=== PATIENT | male | born 1950 ===

== ENCOUNTER 2020-07-04 09:45 | Outpatient (REF) | payer MEDICARE, SELFPAY ==
[2020-07-04 10:26] LABS: Hematocrit 41.9 % (42-52); Hemoglobin 13.9 g/dl (14.0-18.0); Mean Corpuscular HGB Conc 33.2 g/dl (31.0-36.0); Mean Corpuscular Hemoglobin 28.1 pg (27.0-33.0); Mean Corpuscular Volume 84.6 fL (80-98); Mean Platelet Volume 10.6 fL (9.4-12.4); Platelet Count 190 X10*3/uL (160-400); Red Blood Count 4.95 X10*6/uL (4.60-5.80); Red Cell Distribution Width 13.1 % (11.0-16.0); White Blood Count 5.2 X10*3/uL (4.8-10.8)
[2020-07-04 11:54] LABS: Alanine Aminotransferase 12 U/L (0-40); Albumin Level 4.3 g/dL (3.5-5.0); Alkaline Phosphatase 123 U/L (39-117); Anion Gap 9 (12-20); Aspartate Amino Transferase 14 U/L (5-37); Bilirubin Total 1.3 mg/dL (0.0-1.0); Blood Urea Nitrogen 16 mg/dL (9-16); Carbon Dioxide 30 mmol/L (22-29); Chloride 103 mmol/L (96-108); Cholesterol 179 mg/dL; Estimated Glomerular Filt Rate > 60; Glucose Fasting 150 mg/dL (60-99); HDL Cholesterol 48 mg/dL; LDL Cholesterol Calculated 115 mg/dl; Potassium 4.3 mmol/L (3.3-5.1); Prostate Specific Antigen Scr 25.08 ng/mL (<0.05-4.0); Sodium 138 mmol/L (135-145); TSH reflex Free T4 1.16 uIU/mL (0.32-4.0); Total Protein 7.4 g/dL (6.5-8.0); Triglycerides 80 mg/dL
== END 2020-07-04 09:46 | disposition home or self-care (01) ==
LOC: HO.LAB 09:45
PROVIDERS: PCP Physician Assistant; Visit Provider Physician Assistant
DX: E11.65 Type 2 diabetes mellitus with hyperglycemia (principal); I10 Essential (primary) hypertension; R97.20 Elevated prostate specific antigen [PSA]; Z12.5 Encounter for screening for malignant neoplasm of prostate
CPT/HCPCS: 36415; 80053; 80061; 84153; 84443; 85027

== ENCOUNTER → 2020-08-14 09:37 | Outpatient (BNVA) | payer MEDICARE, SELFPAY | PROVIDERS: PCP Physician Assistant; Visit Provider Urology | DX: R97.20 Elevated prostate specific antigen [PSA] (principal) | CPT/HCPCS: 99202 ==

== ENCOUNTER → 2020-08-20 07:52 | Outpatient (BNVA) | payer MEDICARE, SELFPAY | PROVIDERS: PCP Physician Assistant; Visit Provider Physician Assistant | DX: Z12.11 Encounter for screening for malignant neoplasm of colon (principal) | CPT/HCPCS: 99202 ==

== ENCOUNTER → 2020-08-28 10:42 | Outpatient (BNVA) | payer MEDICARE, SELFPAY | PROVIDERS: PCP Physician Assistant; Visit Provider Nurse Practitioner Gerontology | DX: E11.65 Type 2 diabetes mellitus with hyperglycemia (principal); E78.5 Hyperlipidemia, unspecified; B35.3 Tinea pedis | CPT/HCPCS: 82947; 99212 ==

== ENCOUNTER → 2020-10-15 10:21 | Outpatient (BNVA) | payer MEDICARE, SELFPAY | PROVIDERS: PCP Physician Assistant; Visit Provider Nurse Practitioner Gerontology | DX: E11.65 Type 2 diabetes mellitus with hyperglycemia (principal); E78.5 Hyperlipidemia, unspecified | CPT/HCPCS: 82947; 99212 ==

== ENCOUNTER 2021-01-11 07:19 | Outpatient (REF) | payer MEDICARE, SELFPAY ==
[2021-01-11 08:32] LABS: Hematocrit 41.7 % (42-52); Hemoglobin 13.7 g/dl (14.0-18.0); Mean Corpuscular HGB Conc 32.9 g/dl (31.0-36.0); Mean Corpuscular Hemoglobin 28.9 pg (27.0-33.0); Mean Platelet Volume 10.3 fL (9.4-12.4); Platelet Count 176 X10*3/uL (160-400); Red Blood Count 4.74 X10*6/uL (4.60-5.80); Red Cell Distribution Width 13.1 % (11.0-16.0); White Blood Count 5.5 X10*3/uL (4.8-10.8)
[2021-01-11 09:04] LABS: Alanine Aminotransferase 23 U/L (0-40); Albumin Level 4.2 g/dL (3.5-5.0); Alkaline Phosphatase 107 U/L (39-117); Anion Gap 12 (12-20); Aspartate Amino Transferase 22 U/L (5-37); Bilirubin Total 1.1 mg/dL (0.0-1.0); Blood Urea Nitrogen 15 mg/dL (9-16); Carbon Dioxide 27 mmol/L (22-29); Chloride 105 mmol/L (96-108); Cholesterol 129 mg/dL; Estimated Glomerular Filt Rate > 60; Glucose Fasting 139 mg/dL (60-99); HDL Cholesterol 59 mg/dL; LDL Cholesterol Calculated 61 mg/dl; Potassium 4.1 mmol/L (3.3-5.1); Sodium 140 mmol/L (135-145); Total Protein 7.1 g/dL (6.5-8.0); Triglycerides 49 mg/dL
[2021-01-11 09:17] LABS: TSH reflex Free T4 2.62 uIU/mL (0.32-4.0)
[2021-01-11 09:20] LABS: Creatinine Urine 169.25 mg/dL; Microalbum/Creatinine Ratio Ur 9.4 ug/mg cr
[2021-01-13 19:36] LABS: C Peptide 1.41 ng/mL (0.80-3.85)
[2021-01-15 19:06] LABS: Glutamic acid decarboxylase Ab <5 IU/mL (<5)
[2021-01-21 00:52] LABS: Islet Cell Antibody Screen NEGATIVE (NEGATIVE)
== END 2021-01-11 07:20 | disposition home or self-care (01) ==
LOC: HO.LAB 07:19
PROVIDERS: Absent Provider Physician Assistant; PCP Physician Assistant; Visit Provider Nurse Practitioner Gerontology
DX: E78.5 Hyperlipidemia, unspecified (principal); E11.65 Type 2 diabetes mellitus with hyperglycemia; I10 Essential (primary) hypertension
CPT/HCPCS: 36415; 80053; 80061; 82043; 84443; 84681; 85027; 86255; 86341

== ENCOUNTER → 2021-01-15 07:53 | Outpatient (BNVA) | payer MEDICARE, SELFPAY | PROVIDERS: PCP Physician Assistant; Visit Provider Nurse Practitioner Gerontology | DX: E11.65 Type 2 diabetes mellitus with hyperglycemia (principal); E78.5 Hyperlipidemia, unspecified | CPT/HCPCS: 82947; 99212 ==

== ENCOUNTER → 2021-07-16 07:56 | Outpatient (BNVA) | payer MEDICARE, SELFPAY | PROVIDERS: PCP Physician Assistant; Visit Provider Nurse Practitioner Gerontology | DX: E11.42 Type 2 diabetes mellitus with diabetic polyneuropathy (principal); E78.5 Hyperlipidemia, unspecified; Z79.84 Long term (current) use of oral hypoglycemic drugs | CPT/HCPCS: 82947; 83036; 99212 ==

== ENCOUNTER → 2021-10-01 08:57 | Outpatient (BNVA) | payer MEDICARE, SELFPAY | PROVIDERS: PCP Physician Assistant; Referring Provider Physician Assistant; Visit Provider Physician Assistant | DX: R19.5 Other fecal abnormalities (principal) | CPT/HCPCS: 99212; Q3014 ==

== ENCOUNTER 2021-10-18 09:59 | Outpatient (REF) | payer MEDICARE, SELFPAY ==
[2021-10-18 10:32] LABS: Hematocrit 39.3 % (42.0-52.0); Hemoglobin 13.6 g/dl (14.0-18.0); Mean Corpuscular HGB Conc 34.6 g/dl (31.0-36.0); Mean Corpuscular Volume 83.8 fL (80.0-98.0); Mean Platelet Volume 9.8 fL (9.4-12.4); Platelet Count 144 X10*3/uL (160-400); Red Blood Count 4.69 X10*6/uL (4.60-5.80); Red Cell Distribution Width 13.3 % (11.0-16.0); White Blood Count 5.1 X10*3/uL (4.8-10.8)
[2021-10-18 10:42] LABS: Estimated Average Glucose 146 mg/dL; Hemoglobin A1c % 6.7 %
[2021-10-18 11:02] LABS: Alanine Aminotransferase 15 U/L (0-40); Albumin Level 4.2 g/dL (3.5-5.0); Alkaline Phosphatase 130 U/L (39-117); Anion Gap 12 (12-20); Aspartate Amino Transferase 15 U/L (5-37); Bilirubin Total 1.4 mg/dL (0.0-1.0); Blood Urea Nitrogen 14 mg/dL (9-16); Calcium 9.2 mg/dL (8.4-10.2); Carbon Dioxide 27 mmol/L (22-29); Chloride 105 mmol/L (96-108); Cholesterol 116 mg/dL; Estimated Glomerular Filt Rate > 60; Glucose Fasting 132 mg/dL (60-99); HDL Cholesterol 49 mg/dL; LDL Cholesterol Calculated 54 mg/dl; Magnesium 1.9 mg/dL (1.6-2.6); Potassium 4.1 mmol/L (3.3-5.1); Sodium 140 mmol/L (135-145); Total Protein 7.3 g/dL (6.5-8.0); Triglycerides 69 mg/dL
[2021-10-18 11:57] LABS: Creatinine Urine 186.12 mg/dL; Microalbum/Creatinine Ratio Ur 10.7 ug/mg cr
[2021-10-18 12:01] LABS: Prostate Specific Antigen Scr 24.37 ng/mL (<0.05-4.0)
== END 2021-10-18 10:00 | disposition home or self-care (01) ==
LOC: HO.LAB 09:59
PROVIDERS: PCP Physician Assistant; Visit Provider Physician Assistant
DX: Z12.5 Encounter for screening for malignant neoplasm of prostate (principal); E78.5 Hyperlipidemia, unspecified; R20.2 Paresthesia of skin; R97.20 Elevated prostate specific antigen [PSA]; E11.42 Type 2 diabetes mellitus with diabetic polyneuropathy; E11.65 Type 2 diabetes mellitus with hyperglycemia
CPT/HCPCS: 36415; 80053; 80061; 82043; 83036; 83735; 84153; 85027

== ENCOUNTER → 2021-10-22 13:42 | Outpatient (BNVA) | payer MEDICARE, SELFPAY | PROVIDERS: PCP Physician Assistant; Visit Provider Urology | DX: R97.20 Elevated prostate specific antigen [PSA] (principal); N40.1 Benign prostatic hyperplasia with lower urinary tract symptoms; N13.8 Other obstructive and reflux uropathy | CPT/HCPCS: 99212 ==

== ENCOUNTER 2022-02-20 07:51 | Day surgery (SDC) | payer MEDICARE, SELFPAY ==
[2022-02-20 08:01] VITALS: BMI 25.8
[2022-02-20 08:18] VITALS: BP 156/81; PULSE 87; RESP 16; TEMP 36.7; O2SAT 99
--- NOTE | 2022-02-20 08:31 | P.CONAN_ITS ---
FORM[facility]LY [facility] Active Problems Active Problems: All Active Problems (Updated 02/04/22 @ 08:36 by Jeffrey Wan PA-C) Colonoscopy refused (Acute) Trigger finger of right hand (Acute) Right hand paresthesia (Acute) Type 2 diabetes mellitus with diabetic polyneuropathy (Acute) Positive colorectal cancer screening using Cologuard test (Acute) Prostate cancer screening (Acute) Medicare annual wellness visit, initial (Acute) Hyperlipidemia LDL goal <100 (Acute) DMII (diabetes mellitus, type 2) (Acute) Tinea pedis of both feet (Acute) Elevated PSA (Acute) Colon cancer screening (Acute) Past Medical History Medical History Abnormal chest x-ray with multiple lung nodules COVID-19 Cyst of left kidney Diabetes mellitus, type II Elevated hemoglobin A1c Hyperlipidemia LDL goal <100 Hypoxia Tinea pedis of both feet Type 2 diabetes mellitus with diabetic polyneuropathy Family History Family History Father Diabetes Mother Hypertension Family history of problems with anesthesia: No Surgical History Surgical History No history of previous surgery History of Problems with Anesthesia: No Social History Social History Household Members: Family Housing: House Alcohol intake: never Patient Tobacco Use Status: Never used Tobacco e-Cigarette/Vaping Use: Never Used Second Hand Smoke Exposure: No Use of substances other than those prescribed or required for medical reasons: No Are you DNR?: No Advance Directives: No Advance Directives Information Provided: Yes service: No Current occupational status: retired Cognitive needs: No Hearing needs: No Vision needs: Yes Meds Allergies Allergy/AdvReac Type Severity Reaction Status Date / Time No Known Allergies Allergy Verified 02/20/22 08:04 [No Known Allergies*] Exam Exam Date and Time: February 20, 2022 0831 Height,Weight and Vital Signs: Height 5 ft 6 in Weight 72.575 kg Last Vital Signs Temp 98.0 F 02/20/22 08:18 Pulse 87 02/20/22 08:18 Resp 16 02/20/22 08:18 BP 156/81 H 02/20/22 08:18 Pulse Ox 99 02/20/22 08:18 O2 Del Method 02/20/22 08:18 Airway Mallampati Class: II (Missing multiple teeth, denies any loose) TM Dist: >3cm Neck ROM: Full Heart: rrr Lungs: cta Assessment and Plan Assessment Anesthesia Assessment: Anesthesia Plan Discussed and Chart Reviewed Final Anesthetic Review Family History of Problems with Anesthesia: No History of Problems with Anesthesia: No NPO: Yes ASA Class: II Final Preanesthetic Review: No Changes in Pt Med Stat, Meds/Allgs Chart Reviewed and Consent Obtained/Reviewed Patient Risk: Intermediate Procedure Risk: Intermediate Anesthetic Plan Anesthetic Plan: MAC: Disposition: Standard PACU
[2022-02-20 08:38] LABS: Glucose, Whole Blood 106 mg/dL (60-115)
--- NOTE | 2022-02-20 09:57 | MHC.SHP ---
Pre-Procedural Eval Section A Date of Service: 02/20/22 The patient is an INPATIENT: No Section B Chief Complaint: fecal abnormalities,screening,Procedure and treatm Details of Present Illness: colon cancer screening, positive Cologuard test Relevant Family History (Specify if Yes): No Relevant Social History: None Present Medications: see Short Stay Collaborative assessment Medical History: Significant History (Abnormal chest x-ray with multiple lung nodules COVID-19 Cyst of left kidney Diabetes mellitus, type II Elevated hemoglobin A1c Hypoxia) History of Previous Operations: No relevant previous surgery Allergies: Allergies Allergy/AdvReac Type Severity Reaction Status Date / Time No Known Allergies Allergy Verified 02/20/22 08:04 [No Known Allergies*] Review of Systems Sugical H&P ROS: Negative: Constitution, Cardiovascular, Respiratory and Gastrointestinal Exam Surgical H&P Exam: Normal: Heart, Normal: Lungs, Normal: Extremities and Normal: Abdomen Plan Diagnosis/Plan: Unchanged I have reviewed the history and physical and performed a pertinent physical examination on my patient. No changes have occurred unless specified.
--- NOTE | 2022-02-20 09:58 | PM.OP ---
Brief Operative Note Date of Service: 02/20/22 Pre-op diagnosis: colon cancer screening, positive Cologuard test Post-op diagnosis: other ( colon polyps, diverticulosis, hemorrhoids) Procedure: COLONOSCOPY TO CECUM WITH BIOPSIES AND SNARE POLYPECTOMY Surgeon: Thao Snyder MD Anesthesia: MAC Was an Reconciliation Analyst used for this Procedure?: Yes Reconciliation Analyst: Jericho Gagnon Estimated blood loss (mL): 0 Pathology: other (A- TRANVERSE COLON POLYPS B- BECAL POLYP C- ASCENDING COLON POLYPS D- SIGMOID COLON POLYPS) Condition: stable Disposition: PACU
--- NOTE | 2022-02-20 09:59 | P.OP_ITS ---
Operative Note Operative Note Date of Service: 02/20/22 Narrative: Pre-op diagnosis: colon cancer screening, positive Cologuard test Post-op diagnosis:?other ( colon polyps, diverticulosis, hemorrhoids) Surgeon: Thao Snyder MD Anesthesia:?MAC COLONOSCOPY TILL CECUM WITH BIOPSIES AND SNARE POLYPECTOMY Consent: Indications for the procedure and potential complications of bleeding, perforation, reaction to medications and missed diagnosis were discussed with the patient and informed consent was obtained. Instrument: Olympus PCF H 190 L variable stiffness pediatric colonoscope Monitoring: Vital signs and clinical assessment, intermittent blood pressure monitoring, continuous EKG monitoring, Pulse oximetry and Carbon Dioxide monitoring were done throughout the procedure. Colon withdrawl time was 32 minutes. Procedure: The patient was placed in the left lateral decubitis position and pre-procedure medications were administered. After a digital rectal examination of the ano-rectum, the video colonoscope was inserted into the rectum and advanced through the colon to the cecum. The colonoscope was slowly withdrawn in a retrograde panoramic fashion and the colon mucosa was carefully examined including a retroflexed view of the rectum. Findings and interventions are described below. Procedure Difficulty: Without difficulty Findings: Terminal Ileum: Not evaluated Cecum: A 12-15 mm sessile polyp removed with a hot snare. Ascending Colon: A 10 -12 mm sessile polyp in the distal AC removed with a hot snare A 5 mm sessile polyp removed with a cold bx Transverse Colon: A 5-6 mm sessile polyp removed with a cold bx. A 12-15 mm sessile polyp removed with a hot snare. Descending Colon: Normal Sigmoid Colon: Two 8 to 10 mm sessile polyps removed with a hot snare. Moderate diverticulosis Rectum: Normal Ano-rectum: Moderate internal hemorrhoids Colon preparation: Good after copious irrigation and Fair in the right colon and rectum due to undigested vegetable matter. Impression and Post Procedure Diagnosis: Colonoscopy Findings: Seven small to medium sized polyps removed Moderate diverticulosis seen in the sigmoid colon Moderate hemorrhoids on retroflexed exam. Prep was good after copious irrigation and Fair in the right colon and rectum due to undigested vegetable matter. (pt admitted to eating lunch at noon yesterday) Plan: Await pathology results Patient has an appointment on 03/06/22 in the GI Clinic with CEE Gonzalez. Repeat Colonoscopy interval based on path results - in 2 years if polyps are adenomatous and due to fair prep. Above findings were reviewed with the patient and colon polyps and dive rticulosis handouts were given in the discharge area
[2022-02-20 10:55] VITALS: BP 95/66; PULSE 84; RESP 16; TEMP 36.1; O2SAT 96
[2022-02-20 11:10] VITALS: BP 105/66; PULSE 82; RESP 17; O2SAT 99
[2022-02-20 11:25] VITALS: BP 121/64; PULSE 73; RESP 17; TEMP 36.6; O2SAT 99
== END 2022-02-20 12:02 | disposition home or self-care (01) ==
PROVIDERS: PCP Physician Assistant; Visit Provider Internal Medicine Gastroenterology
PROC: 0DJD8ZZ Inspection of Lower Intestinal Tract, Via Natural or Artificial Opening Endoscopic (ICD-10-PCS; CPT 45378; principal; 2022-02-20 09:20)
DX: Z12.11 Encounter for screening for malignant neoplasm of colon (principal); D12.0 Benign neoplasm of cecum; D12.2 Benign neoplasm of ascending colon; D12.3 Benign neoplasm of transverse colon; D12.5 Benign neoplasm of sigmoid colon; K57.30 Diverticulosis of large intestine without perforation or abscess without bleeding; K64.8 Other hemorrhoids; N28.1 Cyst of kidney, acquired; R91.8 Other nonspecific abnormal finding of lung field; E11.9 Type 2 diabetes mellitus without complications; Z79.84 Long term (current) use of oral hypoglycemic drugs; Z79.899 Other long term (current) drug therapy; Z86.16 Personal history of COVID-19
CPT/HCPCS: 45385; 45380; 82947; 88305

== ENCOUNTER → 2022-03-05 08:56 | Outpatient (BNVA) | payer MEDICARE, SELFPAY | PROVIDERS: PCP Physician Assistant; Referring Provider Physician Assistant; Visit Provider Physician Assistant | DX: D36.9 Benign neoplasm, unspecified site (principal); K64.9 Unspecified hemorrhoids; K57.30 Diverticulosis of large intestine without perforation or abscess without bleeding | CPT/HCPCS: 99212 ==

== ENCOUNTER 2023-02-16 08:36 | Outpatient (AMB) | payer MEDICARE, SELFPAY ==
--- NOTE | 2023-02-16 08:42 | A.OFFVIS_ITS ---
Intake Vital Signs 02/16/23 08:46 Height 5 ft 6 in Weight 168 lb 6 oz BMI 27.2 BP 130/70 Blood Pressure Location Rt brachial Position Sitting Pulse 90 Pulse Source Pulse Oximeter Pulse Oximetry (%) 98 Oxygen Delivery Method Room Air Intake Visit Reasons: MELISSA [id number] Intake Note: Patient is here for an Annual Wellness Visit. Item Processing Clerk Required: No Item Processing Clerk Name: [id number] Information Interpreted: non-clinical & clinical Central Aisle Cashier: Central Aisle Cashier offered & declined Accompanied by: Self / Same As Patient Allergies No Known Allergies [No Known Allergies*] Allergy (Verified 02/16/23 09:06) Medication List - Last Reconciled 02/16/23 by GARRISON Connors atorvastatin 20 mg PO DAILY 90 days blood sugar diagnostic (FreeStyle Test strips) test bs twice a day lancets (FreeStyle Lancets) test bs twice a day metformin 500 mg PO QPM 90 days methylcellulose (laxative) (Citrucel) 500 mg PO TID HPI HPI Comments History of Present Illness Details 72-year-old male history of type 2 diabe yoandy, hyperlipidemia, elevated PSA. Patient Tony Wan presents today for subsequent annual well visit. Colonoscopy: Positive Cologuard 11/11/2020; colonoscopy completed 02/20/22 showed tubular adenoma recommended follow-up in 2 years. Recommended yearly diabetic eye exam Recommend flu and pneumonia shot, patient Declined Patient currently following with urology for elevated PSA. Patient recommended Fasting labs completed, patient reports leaving for [place] in March for 5 months. Recommended to get labs completed prior to leaving. Patient reported he does not think he will get them done prior to leaving. [place] of care was reviewed with patient patient was provided with a written s creening schedule. Patient refused healthcare proxy and MOLST forms. [facility] Medical History Abnormal chest x-ray with multiple lung nodules COVID-19 Cyst of left kidney Diabetes mellitus, type II Elevated hemoglobin A1c Hyperlipidemia LDL goal <100 Hypoxia Tinea pedis of both feet Type 2 diabetes mellitus with diabetic polyneuropathy Surgical History Hx of colonoscopy No history of previous surgery Family History Father Diabetes Mother Hypertension Social History Household Members: Family Housing: House Alcohol intake: never Patient Tobacco Use Status: Never used Tobacco e-Cigarette/Vaping Use: Never Used Second Hand Smoke Exposure: No service: No Current occupational status: retired Cognitive needs: No Hearing needs: No Vision needs: Yes Questionnaire Medicare Wellness Checkup [age] What gender do you identify with?: male During the past 4 weeks, how much have you been bothered by emotional problems such as feeling anxious, depressed, irritable, sad or downhearted, and blue?: not at all During the past 4 weeks, has your physical & emotional health limited your social activities with family, friends, neighbors, or groups?: not at all During the past 4 weeks, how much bodily pain have you generally had?: no pain During the past 4 weeks, was someone available to help you if you needed & wanted help?: yes, as much as I wanted During the past 4 weeks, what was the hardest physical activity you could do for at least 2 minutes?: moderate Can you get to places out of walking distance without help? (For eg., can you travel alone on buses, taxis or drive your car?): Yes Can you go shopping for groceries or clothes without someone's help?: Yes Can you prepare your own meals?: Yes Can you do your housework without help?: Yes Because of any health problems, do you need the help of another person with your personal care needs such as eating, bathing, dressing or getting around the house?: No Can you handle your own money without help?: Yes During the past 4 weeks, how would you rate your health in general?: good During the past 4 weeks how have things been going for you?: pretty well Are you having difficulties driving your car?: no Do you always fasten your seat belt when you are in a car?: yes, usually During past 4 weeks, have you been bothered by the following: never: Falling or dizzy when standing up, Sexual problems?, Trouble eating well?, Teeth or denture problems?, Problems using the telephone? and Tiredness or fatigue? Have you fallen 2 or more times in the past year?: No Are you afraid of falling?: No Are you a smoker?: no During the past 4 weeks, how many drinks of wine, beer, or other alcoholic beverages did you have?: no alcohol at all Do you exercise for about 20 minutes 3 or more times a week?: yes, all the time Have you been given information to help with the following?: yes: Hazards in your house that might hurt you? and yes: Keeping track of your medications? How often do you have trouble taking medicines the way you have been told to take them?: I always take medicine as prescribed How confident are you that you can control & manage most of your health problems?: very confident What is your race?: or origin or descent Activity of Daily Living Bathing - sponge bath, tub bath or shower: receives no assistance (gets in/out by self, if usual bathing means Dressing - getting clothes from closets & drawers, including inner/outer garments & fasteners.: gets clothes & gets completely dressed without help Toileting - going to the 'toilet room' for urine/bowel elimination & cleaning self/arranging clothes: goes to toilet room, cleans self, arranges clothes without help Transfer: moves in & out of bed and chair without help (may use support object) Continence: controls urination/bowel movements completely by self Feeding: feeds self without help Total Score: 0 Information obtained from: patient Using telephone: independent Traveling: dependent Shopping: needs assistance (brother) Preparing meals: needs assistance (brother cooks) Housework: needs assistance Taking medicine: independent Managing money: independent PHQ-9 Over the last 2 weeks, how often have you been bothered by any of the following problems? 1. Little interest or pleasure in doing things: not at all 2. Feeling down, depressed, or hopeless: not at all 3. Trouble falling or staying asleep, or sleeping too much: not at all 4. Feeling tired or having little energy: not at all 5. Poor appetite or overeating: not at all 6. Feeling bad about yourself - or that you are a failure or have let yourself or your family down: not at all 7. Trouble concentrating on things, such as reading the newspaper or watching television: not at all 8. Moving or speaking so slowly that other people could have noticed. Or the opposite - being so fidgety or restless that you have been moving around a lot more than usual: not at all 9. Thoughts that you would be better off or of hurting yourself in some way: not at all Total score: 0 Depression Screening Interpretation: Negative Depression Screening Done: Yes 46005 - PHQ-9 Billing: Yes Source: Developed by Drs. Sy Donald, Ronan Saez and colleagues, with an educational judah from [employer]. Thrive Questionnaire Date Thrive assessed: 08/11/22 SRINIVASAN-7 AMB Questionnaire SRINIVASAN-7 Date SRINIVASAN - 7 assessed: 08/11/22 Source: Developed by Drs. Sy Donald, Ronan Saez and colleagues, with an educational judah from [employer]. Physical Exam Vital Signs: Last Vital Signs Pulse 90 02/16/23 08:46 BP 130/70 02/16/23 08:46 Pulse Ox 98 02/16/23 08:46 Oxygen Delivery Method Room Air 02/16/23 08:46 BMI result Body Mass Index 27.2 Const General: cooperative and no acute distress Orientation/consciousness: patient oriented x3 HEENT Ears: other (whisper test: pass) Neuro General: patient oriented x3 Gait exam (Neuro): Normal gait present Coordination: tandem gait normal and Romberg test negative Results AMB Hemoglobin A1c AMB Hemoglobin A1c 6.2 % Last Edit by ESVIN Meyers on 02/16/23 09:04 Results Reviewed Results Reviewed: Laboratory Last Values Hgb A1c (Clinic) 6.2 % (4.0-6.0) H 02/16/23 08:56 Assessment & Plan Assessment & Plan (1) Elevated PSA: Code(s): R97.20 - Elevated prostate specific antigen [PSA] Plan: Patient advised to continue to follow with Dr. Asif. Repeat PSA level ordered. (2) Type 2 diabetes mellitus with diabetic polyneuropathy: Code(s): E11.42 - Type 2 diabetes mellitus with diabetic polyneuropathy Qualifiers: Diabetes mellitus shelter insulin use: without shelter use Qualified Code(s): E11.42 - Type 2 diabetes mellitus with diabetic polyneuropathy Plan: Hemoglobin A1c 6.2% Continue on metformin. Follow low-carbohydrate diet. (3) Hyperlipidemia LDL goal <100: Code(s): E78.5 - Hyperlipidemia, unspecified Plan: Fasting lipid panel ordered LDL goal less than 100. Follow low-cholesterol diet, continue on atorvastatin. Refill sent to patient's pharmacy. (4) Medicare annual wellness visit, subsequent: Code(s): Z00.00 - Encounter for general adult medical examination without abnormal f indings Plan: Follow-up in 1 year. Orders: Orders PSA,Total (Free>4and<10) Today R97.20 - Elevated prostate specific antigen [PSA] AMB Hemoglobin A1c Today E11.42 - Type 2 diabetes mellitus with diabetic polyn europathy, E11.9 - Type 2 diabetes mellitus without complications Comprehensive [place]. Panel Fast Today E11.42 - Type 2 diabetes mellitus with diabetic polyneuropathy Complete Blood Count no Diff Today Z13.0 - Encounter for screening for diseases of the blood and blood-forming organs and certain disorders involving the immune mechanism TSH reflex Free T4 Today Z13.29 - Encounter for screening for other suspected endocrine disorder Lipid Panel Today Z13.220 - Encounter for screening for lipoid disorders Medications: Refilled atorvastatin 20 mg PO DAILY 90 tabs 2RF 90 days E78.5 - Hyperlipidemia, unspecified Quality Reporting (2019) Depression/Bipolar (159/160/161/177) PHQ-9: Total score: 0 Coding Level of Care Code Medicare Subsequent (G0439) Diagnoses Elevated PSA R97.20 Type 2 diabetes mellitus with diabetic polyneuropathy, without long-term current use of insulin E11.42 Diabetes mellitus shelter insulin use: without shelter use Hyperlipidemia LDL goal <100 E78.5 Medicare annual wellness visit, subsequent Z00.00 Advance Care Planning Advance Care Planning discussion: Declined forms Date of discussion: 02/16/23 Forms completed: Health Care Proxy and MOLST Actual minutes spent: 1 Did not discuss due to Cultural/Spiritual beliefs: No
[2023-02-16 08:46] VITALS: BP 130/70; PULSE 90; O2SAT 98; BMI 27.2
== END 2023-02-16 09:22 | disposition home or self-care (01) ==
PROVIDERS: Visit Provider Nurse Practitioner Family
DX: R97.20 Elevated prostate specific antigen [PSA] (principal); E11.42 Type 2 diabetes mellitus with diabetic polyneuropathy; E78.5 Hyperlipidemia, unspecified; Z00.00 Encounter for general adult medical examination without abnormal findings
CPT/HCPCS: 83036; G0439

== ENCOUNTER 2024-02-24 10:00 | Outpatient (AMB) | payer MEDICARE, SELFPAY ==
[2024-02-24 10:16] VITALS: BP 140/82; PULSE 97; O2SAT 97; BMI 27.6
--- NOTE | 2024-02-24 10:16 | A.OFFVIS_ITS ---
Intake Vital Signs 02/24/24 10:16 Height 5 ft 6 in Weight 171 lb BMI 27.6 BP 140/82 H Blood Pressure Location Lt brachial Position Sitting Pulse 97 Pulse Source Pulse Oximeter Pulse Oximetry (%) 97 Oxygen Delivery Method Room Air Intake Visit Reasons: [facility] Director Of Food And Nutrition Services Required: No Accompanied by: Family/Other Allergies No Known Allergies [No Known Allergies*] Allergy (Verified 02/24/24 10:26) Medication List - Last Reconciled 02/24/24 by Jeffrey Wan PA-C atorvastatin 20 mg PO DAILY 90 days blood sugar diagnostic (FreeStyle Test strips) test bs twice a day lancets (FreeStyle Lancets) test bs twice a day metformin 500 mg PO QPM 90 days methylcellulose (laxative) (Citrucel) 500 mg PO TID HPI [facility] HPI Details Patient is a 73-year-old male here today for an annual wellness visit. Patient has a past medical history significant for type 2 diabetes, multiple colon polyps, hyperlipidemia and elevated PSA. Today we discussed his [place] of care. We also discussed his comprehensive care plan that was scanned into patient's documents. Elevated PSA: Declines Urology evaluation. Denies any urinary symptoms. Will continue follow PSA. Tubular adenoma colon--> colonoscopy done February 2022, multiple colon polyps found. Patient now willing to do any more colonoscopies Vaccines: Up-to-date with flu vaccine, COVID vaccine, considering pneumonia vaccine, declines pneumonia vaccine today HPI Comments History of Present Illness Details reviewed past medical history- yes reviewed surgical / hospitalization history- yes reviewed current medications- yes reviewed family history- yes home safety throw rugs? grab bars? raised toilet seat? working smoke detectors? activities of daily living difficulty bathing or showering? difficulty dressing? difficulty using the toilet? difficulty getting in and out of bed? difficulty walking? receives help from other person's with any of the above tasks? instrumental activities of daily living uses telephone - gets to place out of walking distance- go shopping for groceries- repairs own meals- does own minor home maintenance- does own laundry- does own housework- manages own money- currently takes medication- end of life planning discussed advanced directives- yes advanced directives on file? discussed wishes expressed in advanced directives. fall risk have you had any falls with injuries in the past year? have you had 2 or more falls in the past year? fall risk assessment: [facility] Medical History Abnormal chest x-ray with multiple lung nodules COVID-19 Cyst of left kidney Diabetes mellitus, type II Elevated hemoglobin A1c Hyperlipidemia LDL goal <100 Hypoxia Tinea pedis of both feet Type 2 diabetes mellitus with diabetic polyneuropathy Surgical History Hx of colonoscopy No history of previous surgery Family History Father Diabetes Mother Hypertension Social History Household Members: Family Housing: House Alcohol intake: never Patient Tobacco Use Status: Never used Tobacco e-Cigarette/Vaping Use: Never Used Second Hand Smoke Exposure: No service: No Current occupational status: retired Cognitive needs: No Hearing needs: No Vision needs: Yes Questionnaire Medicare Wellness Checkup [age] What gender do you identify with?: male During the past 4 weeks, how much have you been bothered by emotional problems such as feeling anxious, depressed, irritable, sad or downhearted, and blue?: not at all During the past 4 weeks, has your physical & emotional health limited your social activities with family, friends, neighbors, or groups?: not at all During the past 4 weeks, how much bodily pain have you generally had?: no pain During the past 4 weeks, was someone available to help you if you needed & wanted help?: no, not at all During the past 4 weeks, what was the hardest physical activity you could do for at least 2 minutes?: heavy Can you get to places out of walking distance without help? (For eg., can you travel alone on buses, taxis or drive your car?): Yes Can you go shopping for groceries or clothes without someone's help?: Yes Can you prepare your own meals?: Yes Can you do your housework without help?: Yes Because of any health problems, do you need the help of another person with your personal care needs such as eating, bathing, dressing or getting around the house?: No Can you handle your own money without help?: Yes During the past 4 weeks, how would you rate your health in general?: good During the past 4 weeks how have things been going for you?: pretty well Are you having difficulties driving your car?: not applicable, I don't use a car Do you always fasten your seat belt when you are in a car?: yes, usually During past 4 weeks, have you been bothered by the following: never: Falling or dizzy when standing up, Sexual problems?, Trouble eating well?, Teeth or denture problems?, Problems using the telephone? and Tiredness or fatigue? Have you fallen 2 or more times in the past year?: No Are you afraid of falling?: No Are you a smoker?: no During the past 4 weeks, how many drinks of wine, beer, or other alcoholic beverages did you have?: no alcohol at all Do you exercise for about 20 minutes 3 or more times a week?: yes, all the time Have you been given information to help with the following?: no: Hazards in your house that might hurt you? and no: Keeping track of your medications? How often do you have trouble taking medicines the way you have been told to take them?: I always take medicine as prescribed How confident are you that you can control & manage most of your health problems?: very confident What is your race?: or origin or descent Mini Mental State Exam (MMSE) Orientation What is the (year) (season) (date) (day) (month)?: year Where are we (state) (county) (town or city) (hospital) (floor)?: town or city Score Score: 2 Activity of Daily Living Bathing - sponge bath, tub bath or shower: receives no assistance (gets in/out by self, if usual bathing means Dressing - getting clothes from closets & drawers, including inner/outer g arments & fasteners.: gets clothes & gets completely dressed without help Toileting - going to the 'toilet room' for urine/bowel elimination & cleaning self/arranging clothes: goes to toilet room, cleans self, arranges clothes without help Transfer: moves in & out of bed and chair without help (may use support object) Continence: controls urination/bowel movements completely by self Feeding: feeds self without help Total Score: 0 Information obtained from: patient Using telephone: independent Traveling: independent Shopping: independent Preparing meals: independent Housework: independent Taking medicine: independent Managing money: independent PHQ-9 Over the last 2 weeks, how often have you been bothered by any of the following problems? 1. Little interest or pleasure in doing things: not at all 2. Feeling down, depressed, or hopeless: not at all 3. Trouble falling or staying asleep, or sleeping too much: not at all 4. Feeling tired or having little energy: not at all 5. Poor appetite or overeating: not at all 6. Feeling bad about yourself - or that you are a failure or have let yourself or your family down: not at all 7. Trouble concentrating on things, such as reading the newspaper or watching television: not at all 8. Moving or speaking so slowly that other people could have noticed. Or the opposite - being so fidgety or restless that you have been moving around a lot more than usual: not at all 9. Thoughts that you would be better off or of hurting yourself in some way: not at all Total score: 0 Depression Screening Interpretation: Negative Depression Screening Done: Yes 01147 - PHQ-9 Billing: Yes Source: Developed by Drs. Sy Donald, Klaudia Jung, Ronan Man and colleagues, with an educational judah from [employer]. Physical Exam Vital Signs: Last Vital Signs Pulse 97 02/24/24 10:16 BP 140/82 H 02/24/24 10:16 Pulse Ox 97 02/24/24 10:16 Oxygen Delivery Method Room Air 02/24/24 10:16 BMI result Body Mass Index 27.6 HEENT Other: hearing screening whisper test- pass Eyes Other: vision screening- 20 20 OS OD OU Other: urinary incontinence? no Neuro Other: balance Romberg- normal tandem walk test-able walk-in turned test- able rise from sit to stand-within do seconds Office Procedures Flu Questionnaire Does the patient have a severe egg allergy?: No Does the patient have severe life threatening allergies?: No Does the patient have a fever or illness today?: No Has the patient ever had Guillain-[place] Syndrome?: No Has the patient ever had any past reaction to a flu shot?: No Immunizations Fluarix Triv [id number] (PF) 45 mcg (15 mcg x 3)/0.5 mL IM syringe Performing Provider: Jeffrey Wan PA-C Performing Location: [facility] Administered by: ARYA Burch on 02/24/24 10:25 Dose Route Admin Location Dispensed Lot Number Expiration Date NDC Expansion Joint Builder 0.5 mL IM Left Deltoid 0.5 mL [id number] 10/16/24 [id number] [email or web address] VIS Given Date VIS Provided VIS Publication Date 02/24/24 Single Vaccine 20 Eligibility Eligibility Date Funding Source Not [facility] Eligible 02/24/24 Private Assessment & Plan Assessment & Plan (1) Medicare annual wellness visit, subsequent: Code(s): Z00.00 - Encounter for general adult medical examination without abnormal findings Plan: As per HPI Orders: Orders Lipid Panel Today E78.5 - Hyperlipidemia, unspecified Comprehensive [place]. Panel Fast Today E11.42 - Type 2 diabetes mellitus with diabetic polyneuropathy Complete Blood Count no Diff Today E11.42 - Type 2 diabetes mellitus with diabetic polyneuropathy AMB Hemoglobin A1c Today E11.42 - Type 2 diabetes mellitus with diabetic polyneuropathy Prostate Specific Antigen Scr Today R97.20 - Elevated prostate specific antigen [PSA], Z12.5 - Encounter for screening for malignant neoplasm of prostate Microalbumin, Random (w Creat) Today E11.42 - Type 2 diabetes mellitus with diabetic polyneuropathy Influenza [id number] Immunization Today Z23 - Encounter for immunization Medications: Refilled atorvastatin 20 mg PO DAILY 90 days 90 tabs 2RF E78.5 - Hyperlipidemia, unspecified Quality Reporting (2019) Depression/Bipolar (159/160/161/177) PHQ-9: Total score: 0 Coding Level of Care Code Medicare Subsequent (G0439) Diagnoses Medicare annual wellness visit, subsequent Z00.00 CPT Codes Advance Care Planning - Time spent: 1-15 minutes, not on file ([id number]) Additional Codes PHQ-9 - 64912 - PHQ-9 Billing: Yes ([id number]) Advance Care Planning Advance Care Planning discussion: Exists, not on file Date of discussion: 02/24/24 Forms completed: [facility]OLST Time spent: 1-15 minutes, not on file Actual minutes spent: 3
== END 2024-02-24 11:48 | disposition home or self-care (01) ==
LOC: HO.HMCH 10:00
PROVIDERS: PCP Physician Assistant; Visit Provider Physician Assistant
DX: Z00.00 Encounter for general adult medical examination without abnormal findings (principal)

== ENCOUNTER → 2024-02-24 10:00 | Outpatient (BNVA) | payer MEDICARE, SELFPAY | PROVIDERS: PCP Physician Assistant; Visit Provider Physician Assistant | DX: Z00.00 Encounter for general adult medical examination without abnormal findings (principal); Z23 Encounter for immunization; E11.9 Type 2 diabetes mellitus without complications; E78.5 Hyperlipidemia, unspecified | CPT/HCPCS: 90471; 90656; 96127 ==

== ENCOUNTER 2024-08-24 09:46 | Outpatient (AMB) | payer MEDICARE, SELFPAY ==
--- NOTE | 2024-08-24 10:01 | A.OFFPC_ITS ---
Vital Signs 08/24/24 10:02 Height 5 ft 6 in Weight 169 lb 8 oz BMI 27.4 BP 120/62 Blood Pressure Location Lt brachial Position Sitting Pulse 82 Pulse Source Pulse Oximeter Temp 97.3 F Temp Source Temporal Artery Scan Pulse Oximetry (%) 95 Oxygen Delivery Method Room Air Intake Visit Reasons: f/u DMII/ HLD Allergies No Known Allergies [No Known Allergies*] Allergy (Verified 08/24/24 10:07) Medication List - Last Reconciled 08/24/24 by Jeffrey Wan PA-C atorvastatin 20 mg PO DAILY 90 days blood sugar diagnostic (FreeStyle Test strips) test bs twice a day lancets (FreeStyle Lancets) test bs twice a day metformin 500 mg PO QPM 90 days methylcellulose (laxative) (Citrucel) 500 mg PO TID Tobacco use date assessed: 08/11/22 HPI f/u DMII/ HLD HPI Details Patient is a 74 year-old male here today for a follow-up visit..? .. DMII:? Patient reports blood sugars have been stable home, checking twice per day.? Family reports his diet has been good . He does report on rare occasions having blood sugar at 200. Today's A1c is 6.3 Continues on metformin a 500 qd. he does check his blood sugars twice a day reports normal readings. .. . Elevated PSA:? Patient does have a history of elevated PSA and urology recommending biopsy though patient is declining having biopsy done.? Continue to follow PSA Otherwise patient denies any weak urinary flow or nocturia. Tubular adenoma colon--> colonoscopy done February 2022, multiple colon polyps found. Patient now willing to do any more colonoscopies [facility] Medical History Type 2 diabetes mellitus with diabetic polyneuropathy Hyperlipidemia LDL goal <100 Tinea pedis of both feet Cyst of left kidney Diabetes mellitus, type II Elevated hemoglobin A1c Abnormal chest x-ray with multiple lung nodules Hypoxia COVID-19 Surgical History Hx of colonoscopy No history of previous surgery Family History Father Diabetes Mother Hypertension Social History Household Members: Family Housing: House Alcohol intake: never Patient Tobacco Use Status: Never used Tobacco e-Cigarette/Vaping Use: Never Used Second Hand Smoke Exposure: No service: No Current occupational status: retired Cognitive needs: No Hearing needs: No Vision needs: Yes Questionnaire PHQ-9 Over the last 2 weeks, how often have you been bothered by any of the following problems? 1. Little interest or pleasure in doing things: not at all 2. Feeling down, depressed, or hopeless: not at all 3. Trouble falling or staying asleep, or sleeping too much: not at all 4. Feeling tired or having little energy: not at all 5. Poor appetite or overeating: not at all 6. Feeling bad about yourself - or that you are a failure or have let yourself or your family down: not at all 7. Trouble concentrating on things, such as reading the newspaper or watching television: not at all 8. Moving or speaking so slowly that other people could have noticed. Or the opposite - being so fidgety or restless that you have been moving around a lot more than usual: not at all 9. Thoughts that you would be better off or of hurting yourself in some way: not at all Total score: 0 Depression Screening Interpretation: Negative Depression Screening Done: Yes 39330 - PHQ-9 Billing: Yes Source: Developed by Drs. Sy Donald, Klaudia Jung, Ronan Man and colleagues, with an educational judah from [employer]. Thrive Questionnaire Date Thrive assessed: 08/11/22 I am a: Patient What is your living situation today?: I have a steady place to live Within the past 12 months, did the food you bought not last and you didn't have the money to get more?: I choose not to answer this question Within the past 12 months, did you worry whether your food would run out before you got money to buy more?: I choose not to answer this question Do you have trouble paying for medicines?: I choose not to answer this question Do you have trouble getting transportation to medical appointments?: No Do you have trouble paying your heating and electricity bill?: No Do you have trouble taking care of your child, family member or friend?: No Do you have trouble with day-to-day activities such as bathing, preparing meals, shopping, managing finances, etc.?: No Are you currently unemployed and looking for a job?: I choose not to answer this question Are you interested in more education?: I choose not to answer this question Please select the resources that you would like help with: None Currently or been in a relationship where the following occur: I choose not to answer THRIVE Score: 0 AUDIT C Alcohol Use Questionnaire (AUDIT-C) 1. How often do you have a drink containing alcohol?: Never Total Score: 0 SRINIVASAN-7 AMB Questionnaire SRINIVASAN-7 Date SRINIVASAN - 7 assessed: 08/11/22 Feeling nervous, anxious, or on edge: 0 = Not at all Not being able to stop or control worryin = Not at all Worrying too much about different things: 0 = Not at all Trouble relaxin = Not at all Being so restless that it is hard to sit still: 0 = Not at all Becoming easily annoyed or irritable: 0 = Not at all Feeling afraid as if something awful might happen: 0 = Not at all Total SRINIVASAN-7 score (0-4 normal; 5-9 mild; 10-14 moderate; 15-21 severe): 0 Source: Developed by Drs. Sy Donald, Klaudia Jung, Ronan Man and colleagues, with an educational judah from [employer]. SRINIVASAN-7 Assessment Billing SRINIVASAN-7 Assessment Tool: SRINIVASAN-7 Assessment 38549 Review of Systems Const Denies headache(s) Eyes Denies loss of vision ENT Denies vertigo, Denies dizziness, Denies headache(s) and Denies sore throat Card Denies chest pain, Denies leg edema and Denies lightheadedness Resp Denies cough, Denies hemoptysis and Denies wheezing GI Denies abdominal pain, Denies melena, Denies constipation, Denies diarrhea and Denies vomiting Denies dysuria, Denies urinary frequency and Denies urinary urgency Musc Denies arthralgias, Denies joint swelling, Denies numbness and Denies tingling Neuro Denies Abnormal speech present, Denies behavioral changes, Denies vertigo, Denies dizziness, Denies headache(s), Denies loss of vision, Denies memory loss, Denies numbness and Denies tingling Psych Denies anxiety, Denies behavioral changes, Denies depression, Denies memory loss and Denies panic attacks Ramesh/Lymph Denies easy bleeding and Denies easy bruising Aller/Immun Denies wheezing Physical exam (Primary Care) Vital Signs: Last Vital Signs Temp 97.3 F 08/24/24 10:02 Pulse 82 08/24/24 10:02 BP 120/62 08/24/24 10:02 Pulse Ox 95 08/24/24 10:02 Oxygen Delivery Method Room Air 08/24/24 10:02 BMI result Body Mass Index 27.4 Tobacco/Smoking Status: Tobacco use Status Tobacco use date assessed 08/11/22 08/24/24 10:02 Patient Tobacco Use Status Never used Tobacco 08/24/24 10:02 e-Cigarette/Vaping Use Never Used 08/24/24 10:02 PHQ-9: PHQ-9 Score PHQ-9: Total score 0 08/24/24 10:02 Depression Screening Interpretation: Negative Thrive Assessment: Date of Thrive Assessment Date Thrive assessed 08/11/22 08/24/24 10:02 Currently or been in a relationship where the following occur: I choose not to answer Const General: healthy appearing, no acute distress, alert and awake Nutritional Appearance: well nourished Orientation/consciousness: oriented to person, oriented to place and oriented to time HENMT Ears: TM's normal bilaterally General nose exam: Normal nasal mucous membranes and turbinates present Eyes Conjunctivae: conjunctivae normal Sclerae: sclerae normal Pupils: Equal, round and reactive pupils present Neck Neck: Yes no lymphadenopathy and Yes no JVD Thyroid: Thyroid normal Carotids: no bruits Resp Effort & Inspection: normal respiratory effort and not tachypneic Auscultation: no crackles, no rales, no rhonchi and no wheezes Cardio Rate: regular rate Rhythm: regular rhythm Heart sounds: no murmurs and normal S1 and S2 GI Palpation (GI): Soft to palpation, nontender, no hepatomegaly and no splenomegaly Auscultation: normal bowel sounds Skin General skin exam: no rashes or lesions noted and dry skin Neuro General: oriented to person, oriented to place and oriented to time Cranial nerves: Yes Equal, round and reactive pupils present Speech: No Abnormal speech present Gait exam (Neuro): Normal gait present Motor exam (neuro): no tremor noted Extrem Right upper extremity: full ROM Left upper extremity: full ROM Right lower extremity: full ROM; no edema Left lower extremity: full ROM; no edema Psych Mental Status: mental status grossly normal Speech and movement: Normal speech and movement present Affect: normal affect Attitude: cooperative Thought process: Normal thought process present Results AMB Hemoglobin A1c AMB Hemoglobin A1c 6.3 % Last Edit by ARYA Burch on 08/24/24 10:03 Results Reviewed Results Reviewed: Laboratory Last Values Hgb A1c (Clinic) 6.3 % (4.0-6.0) H 08/24/24 10:02 Coding Level of Care Code Est Pt Level 4 (83907) Diagnoses Type 2 diabetes mellitus with diabetic polyneuropathy, without long-term current use of insulin E11.42 Diabetes mellitus watermaster insulin use: without snf use Diabetes mellitus complication status: with neurologic complications Diabetes mellitus complication detail: with polyneuropathy Hyperlipidemia LDL goal <100 E78.5 Elevated PSA R97.20 Additional Codes PHQ-9 - 47476 - PHQ-9 Billing: Yes ([id number]) SRINIVASAN-7 Assessment Billing - SRINIVASAN-7 Assessment Tool: SRINIVASAN-7 Assessment [id number] ([id number]) Assessment & Plan Assessment & Plan (1) DMII (diabetes mellitus, type 2): Code(s): E11.9 - Type 2 diabetes mellitus without complications Category: Medical Qualifiers: Diabetes mellitus watermaster insulin use: without snf use Diabetes mellitus complication status: with neurologic complications Diabetes mellitus complication detail: with polyneuropathy Qualified Code(s): E11.42 - Type 2 diabetes mellitus with diabetic polyneuropathy Plan: Patient's type 2 diabetes well controlled with current dose of metformin 500 daily. Will continue current antihyperglycemic medication with goal A1c to be below 7.0 (2) Hyperlipidemia LDL goal <100: Code(s): E78.5 - Hyperlipidemia, unspecified Category: Medical Plan: Patient willing to do fasting labs to evaluate total cholesterol and LDL. Goal LDL to be below 100. (3) Elevated PSA: Code(s): R97.20 - Elevated prostate specific antigen [PSA] Category: Medical Plan: Patient continues to have elevated PSA. He denies any urinary symptoms or or nocturia. He is now willing to see urologist for evaluation on possible prostate cancer. Will continue to follow PSA. Patient Instructions: Goal: A1c to remain below 7.0, LDL to be below 100 :Barriers: Adherence to physical activity and healthy eating habits
[2024-08-24 10:02] VITALS: BP 120/62; PULSE 82; TEMP 36.3; O2SAT 95; BMI 27.4
== END 2024-08-24 10:23 | disposition home or self-care (01) ==
LOC: HO.HMCH 09:47
PROVIDERS: PCP Physician Assistant; Visit Provider Physician Assistant
DX: E11.42 Type 2 diabetes mellitus with diabetic polyneuropathy (principal); E78.5 Hyperlipidemia, unspecified; R97.20 Elevated prostate specific antigen [PSA]

== ENCOUNTER 2024-08-24 09:46 | Outpatient (REF) | payer MEDICARE, SELFPAY ==
[2024-08-24 11:55] LABS: Hematocrit 40.2 % (42.0-52.0); Hemoglobin 13.8 g/dl (14.0-18.0); Mean Corpuscular HGB Conc 34.3 g/dl (31.0-36.0); Mean Corpuscular Hemoglobin 29.2 pg (27.0-33.0); Mean Corpuscular Volume 85.2 fL (80.0-98.0); Mean Platelet Volume 10.4 fL (9.4-12.4); Platelet Count 171 X10*3/uL (160-400); Red Blood Count 4.72 X10*6/uL (4.60-5.80); Red Cell Distribution Width 13.6 % (11.0-16.0); White Blood Count 5.8 X10*3/uL (4.8-10.8)
[2024-08-24 12:32] LABS: Alanine Aminotransferase 22 U/L (0-40); Albumin Level 4.1 g/dL (3.5-5.0); Alkaline Phosphatase 123 U/L (39-117); Anion Gap 14 (12-20); Aspartate Amino Transferase 35 U/L (5-37); Bilirubin Total 0.7 mg/dL (0.0-1.0); Blood Urea Nitrogen 15 mg/dL (9-16); Calcium 9.3 mg/dL (8.4-10.2); Carbon Dioxide 18 mmol/L (22-29); Chloride 110 mmol/L (96-108); Cholesterol 181 mg/dL (<200); Estimated Glomerular Filt Rate > 60; Glucose Fasting 102 mg/dL (60-99); HDL Cholesterol 56 mg/dL (>40); LDL Cholesterol Calculated 110 mg/dL (<100); Potassium 4.5 mmol/L (3.3-5.1); Sodium 137 mmol/L (135-145); Total Protein 7.8 g/dL (6.5-8.0); Triglycerides 77 mg/dL (<150)
[2024-08-24 12:50] LABS: Prostate Specific Antigen Scr 99.48 ng/mL (<0.05-4.0)
[2024-08-24 12:59] LABS: Creatinine Urine 147.52 mg/dL; Microalbum/Creatinine Ratio Ur 16.2 ug/mg cr (<30)
== END 2024-08-24 09:47 | disposition home or self-care (01) ==
LOC: HO.LAB 09:46
PROVIDERS: PCP Physician Assistant; Visit Provider Physician Assistant
DX: E11.42 Type 2 diabetes mellitus with diabetic polyneuropathy (principal); E78.5 Hyperlipidemia, unspecified; R97.20 Elevated prostate specific antigen [PSA]; Z12.5 Encounter for screening for malignant neoplasm of prostate; Z79.84 Long term (current) use of oral hypoglycemic drugs
CPT/HCPCS: 36415; 80053; 80061; 82043; 82570; 83036; 84153; 85027; 96127; 99212

== ENCOUNTER 2025-03-01 08:45 | Outpatient (AMB) | payer MEDICARE, SELFPAY ==
--- NOTE | 2025-03-01 09:21 | A.OFFPC_ITS ---
Intake Visit Reasons: awv Allergies No Known Allergies (No Known Allergies*) Allergy (Verified 08/24/24 10:07) Tobacco use date assessed: 08/11/22 [facility] Medical History Type 2 diabetes mellitus with diabetic polyneuropathy Hyperlipidemia LDL goal <100 Tinea pedis of both feet Cyst of left kidney Diabetes mellitus, type II Elevated hemoglobin A1c Abnormal chest x-ray with multiple lung nodules Hypoxia COVID-19 Surgical History Hx of colonoscopy No history of previous surgery Family History Father Diabetes Mother Hypertension Social History Household Members: Family Housing: House Alcohol intake: never Patient Tobacco Use Status: Never used Tobacco e-Cigarette/Vaping Use: Never Used Second Hand Smoke Exposure: No service: No Current occupational status: retired Cognitive needs: No Hearing needs: No Vision needs: Yes Questionnaire Thrive Questionnaire Date Thrive assessed: 08/24/24 I am a: Patient What is your living situation today?: I have a steady place to live Within the past 12 months, did the food you bought not last and you didn't have the money to get more?: I choose not to answer this question Within the past 12 months, did you worry whether your food would run out before you got money to buy more?: I choose not to answer this question Do you have trouble paying for medicines?: I choose not to answer this question Do you have trouble getting transportation to medical appointments?: No Do you have trouble paying your heating and electricity bill?: No Do you have trouble taking care of your child, family member or friend?: No Do you have trouble with day-to-day activities such as bathing, preparing meals, shopping, managing finances, etc.?: No Are you currently unemployed and looking for a job?: I choose not to answer this question Are you interested in more education?: I choose not to answer this question Please select the resources that you would like help with: None Currently or been in a relationship where the following occur: I choose not to answer THRIVE Score: 0 SRINIVASAN-7 AMB Questionnaire SRINIVASAN-7 Date SRINIVASAN - 7 assessed: 08/11/22 Source: Developed by Drs. Sy Donald, Klaudia Jung, Ronan Man and colleagues, with an educational judah from [employer]. Physical exam (Primary Care) Tobacco/Smoking Status: Tobacco use Status Tobacco use date assessed 08/11/22 08/24/24 10:02 Patient Tobacco Use Status Never used Tobacco 08/24/24 10:02 e-Cigarette/Vaping Use Never Used 08/24/24 10:02 Thrive Assessment: Date of Thrive Assessment Date Thrive assessed 08/24/24 03/01/25 08:46 Currently or been in a relationship where the following occur: I choose not to answer Coding
[2025-03-01 09:22] VITALS: BP 118/82; PULSE 81; TEMP 36.3; O2SAT 98; BMI 26.1
--- NOTE | 2025-03-01 09:22 | AM.OFFVISMDC ---
Intake Vital Signs 03/01/25 09:22 Height 5 ft 6 in Weight 162 lb BMI 26.1 BP 118/82 Blood Pressure Location Lt brachial Position Sitting Pulse 81 Pulse Source Pulse Oximeter Temp 97.3 F Temp Source Temporal Artery Scan Pulse Oximetry (%) 98 Oxygen Delivery Method Room Air Intake Visit Reasons: awv Accompanied by: Nephew or Niece Allergies No Known Allergies (No Known Allergies*) Allergy (Verified 03/01/25 09:52) Medication List - Last Reconciled 03/01/25 by Jeffrey Wan PA-C atorvastatin 20 mg PO DAILY 90 days blood sugar diagnostic (FreeStyle Test strips) test bs twice a day lancets (FreeStyle Lancets) test bs twice a day metformin 500 mg PO QPM 90 days methylcellulose (laxative) (Citrucel) 500 mg PO TID HPI awv HPI Details Patient is a 74 year-old male here today for a AWV Today we discussed patient's [place] of care, end of life planning and comprehensive care plan which was scanned into patient's documents. .. DMII:? Patient reports blood sugars have been stable home, checking twice per day.? Family reports his diet has been good . He does report on rare occasions having blood sugar at 200. Today's A1c is above 7 Continues on metformin a 500 qd. he does check his blood sugars twice a day reports normal readings. .. Hyperlipidemia: Most recent labs showing slightly elevated LDL at 110. We will increase his atorvastatin to 40 mg. . Elevated PSA:? Patient does have a history of elevated PSA and urology recommending biopsy though patient is declining having biopsy done.? Continue to follow PSA Otherwise patient denies any weak urinary flow or nocturia. Tubular adenoma colon--> colonoscopy done February 2022, multiple colon polyps found. He is now willing to be set up for colonoscopy in mid 2025. VAccine: Need Flu vaccine, declined shingles, pneumonia vaccines. HPI Comments History of Present Illness Details reviewed past medical history- yes reviewed surgical / hospitalization history- yes reviewed current medications- yes reviewed family history- yes home safety throw rugs? grab bars? raised toilet seat? working smoke detectors? activities of daily living difficulty bathing or showering? difficulty dressing? difficulty using the toilet? difficulty getting in and out of bed? difficulty walking? receives help from other person's with any of the above tasks? instrumental activities of daily living uses telephone - gets to place out of walking distance- go shopping for groceries- repairs own meals- does own minor home maintenance- does own laundry- does own housework- manages own money- currently takes medication- end of life planning discussed advanced directives- yes advanced directives on file? discussed wishes expressed in advanced directives. fall risk have you had any falls with injuries in the past year? have you had 2 or more falls in the past year? fall risk assessment: [facility] Medical History Type 2 diabetes mellitus with diabetic polyneuropathy Hyperlipidemia LDL goal <100 Tinea pedis of both feet Cyst of left kidney Diabetes mellitus, type II Elevated hemoglobin A1c Abnormal chest x-ray with multiple lung nodules Hypoxia COVID-19 Surgical History Hx of colonoscopy No history of previous surgery Family History Father Diabetes Mother Hypertension Social History Household Members: Family Housing: House Alcohol intake: never Patient Tobacco Use Status: Never used Tobacco e-Cigarette/Vaping Use: Never Used Second Hand Smoke Exposure: No service: No Current occupational status: retired Cognitive needs: No Hearing needs: No Vision needs: Yes Questionnaire Medicare Wellness Checkup [age] What gender do you identify with?: male During the past 4 weeks, how much have you been bothered by emotional problems such as feeling anxious, depressed, irritable, sad or downhearted, and blue?: not at all During the past 4 weeks, has your physical & emotional health limited your social activities with family, friends, neighbors, or groups?: not at all During the past 4 weeks, how much bodily pain have you generally had?: no pain During the past 4 weeks, was someone available to help you if you needed & wanted help?: yes, as much as I wanted During the past 4 weeks, what was the hardest physical activity you could do for at least 2 minutes?: light Can you get to places out of walking distance without help? (For eg., can you travel alone on buses, taxis or drive your car?): Yes Can you go shopping for groceries or clothes without someone's help?: Yes Can you prepare your own meals?: Yes Can you do your housework without help?: Yes Because of any health problems, do you need the help of another person with your personal care needs such as eating, bathing, dressing or getting around the house?: No Can you handle your own money without help?: Yes During the past 4 weeks, how would you rate your health in general?: very good During the past 4 weeks how have things been going for you?: pretty well Are you having difficulties driving your car?: not applicable, I don't use a car Do you always fasten your seat belt when you are in a car?: yes, usually During past 4 weeks, have you been bothered by the following: never: Falling or dizzy when standing up, Sexual problems?, Trouble eating well?, Teeth or denture problems?, Problems using the telephone? and Tiredness or fatigue? Have you fallen 2 or more times in the past year?: No Are you afraid of falling?: No Are you a smoker?: no During the past 4 weeks, how many drinks of wine, beer, or other alcoholic beverages did you have?: no alcohol at all Do you exercise for about 20 minutes 3 or more times a week?: yes, some of the time Have you been given information to help with the following?: no: Hazards in your house that might hurt you? and no: Keeping track of your medications? How often do you have trouble taking medicines the way you have been told to take them?: I do not have to take medicine How confident are you that you can control & manage most of your health problems?: very confident What is your race?: or origin or descent Activity of Daily Living Bathing - sponge bath, tub bath or shower: receives no assistance (gets in/out by self, if usual bathing means Dressing - getting clothes from closets & drawers, including inner/outer garments & fasteners.: gets clothes & gets completely dressed without help Toileting - going to the 'toilet room' for urine/bowel elimination & cleaning self/arranging clothes: goes to toilet room, cleans self, arranges clothes without help Transfer: moves in & out of bed and chair without help (may use support object) Continence: controls urination/bowel movements completely by self Feeding: feeds self without help Total Score: 0 Information obtained from: patient Using telephone: independent Traveling: independent Shopping: independent Preparing meals: independent Housework: independent Taking medicine: independent Managing money: independent PHQ-9 Over the last 2 weeks, how often have you been bothered by any of the following problems? 1. Little interest or pleasure in doing things: not at all 2. Feeling down, depressed, or hopeless: not at all 3. Trouble falling or staying asleep, or sleeping too much: not at all 4. Feeling tired or having little energy: not at all 5. Poor appetite or overeating: not at all 6. Feeling bad about yourself - or that you are a failure or have let yourself or your family down: not at all 7. Trouble concentrating on things, such as reading the newspaper or watching television: not at all 8. Moving or speaking so slowly that other people could have noticed. Or the opposite - being so fidgety or restless that you have been moving around a lot more than usual: not at all 9. Thoughts that you would be better off or of hurting yourself in some way: not at all Total score: 0 Depression Screening Interpretation: Negative Depression Screening Done: Yes 46792 - PHQ-9 Billing: Yes Source: Developed by Drs. Sy Donald, Klaudia Jung, Ronan Man and colleagues, with an educational judah from [employer]. Physical Exam Vital Signs: Last Vital Signs Temp 97.3 F 03/01/25 09:22 Pulse 81 03/01/25 09:22 BP 118/82 03/01/25 09:22 Pulse Ox 98 03/01/25 09:22 Oxygen Delivery Method Room Air 03/01/25 09:22 BMI result Body Mass Index 26.1 HEENT Other: hearing screening whisper test- passed Eyes Other: vision screening- 2020 OS OD OU Other: urinary incontinence? no Neuro Other: balance Romberg- normal tandem walk test- able walk-in turned test- able rise from sit to stand- within 2 seconds Office Procedures Flu Questionnaire Does the patient have a severe egg allergy?: No Does the patient have severe life threatening allergies?: No Does the patient have a fever or illness today?: No Has the patient ever had Guillain-Silverthorne Syndrome?: No Has the patient ever had any past reaction to a flu shot?: No Results AMB Hemoglobin A1c AMB Hemoglobin A1c 7.0 % Last Edit by Jessica Evans CMA on 03/01/25 09:30 Immunizations Fluarix [id number] (PF) 45 mcg (15 mcg x 3)/0.5 mL IM syringe Performing Provider: Jeffrey Wan PA-C [facility] Administered by: Jessica Evans CMA on 03/01/25 10:13 Dose Route Admin Location Dispensed Lot Number Expiration Date NDC Bill Checker 0.5 mL IM Left Deltoid 0.5 mL [id number] 10/16/25 [id number] [employer] VIS Given Date VIS Provided VIS Publication Date 03/01/25 Single Vaccine 24 Eligibility Eligibility Date Funding Source Not [facility] Eligible 03/01/25 Private Results Reviewed Results Reviewed: Laboratory Last Values Hgb A1c (Clinic) 7.0 % (4.0-6.0) H 03/01/25 09:28 Assessment & Plan Assessment & Plan (1) Medicare annual wellness visit, initial: Comment: Declined colonoscopy, eye exam, flu, PSSV. Declined referral back to urology for elevated PSA. Code(s): Z00.00 - Encounter for general adult medical examination without abnormal findings Plan: As per [facility] Orders: Orders Lipid Panel Today E78.5 - Hyperlipidemia, unspecified Microalbumin, Random (w Creat) Today E11.42 - Type 2 diabetes mellitus with diabetic polyneuropathy AMB Hemoglobin A1c Today Z13.9 - Encounter for screening, unspecified Comprehensive [place]. Panel Fast Today E11.42 - Type 2 diabetes mellitus with diabetic polyneuropathy Complete Blood Count no Diff Today E11.42 - Type 2 diabetes mellitus with diabetic polyneuropathy Influenza [id number] Immunization Today Z23 - Encounter for immunization Referrals Gastroenterology Referral D36.9 - Benign neoplasm, unspecified site Medications: New atorvastatin (Lipitor) 40 mg PO DAILY 90 tabs 1RF 90 days E78.5 - Hyperlipidemia, unspecified Discontinued atorvastatin Discontinued Reason: Doctor's Order 20 mg PO DAILY 90 days 90 tabs 2RF E78.5 - Hyperlipidemia, unspecified Quality Reporting (2019) Depression/Bipolar (159/160/161/177) PHQ-9: Total score: 0 Coding Level of Care Code Medicare Subsequent (G0439) Diagnoses Medicare annual wellness visit, initial Z00.00 CPT Codes Advance Care Planning - Time spent: 1-15 minutes, not on file ([id number]) Additional Codes PHQ-9 - 43361 - PHQ-9 Billing: Yes ([id number]) Advance Care Planning Advance Care Planning discussion: Exists, not on file Date of discussion: 03/01/25 Who was present: Patient's family member Forms completed: MOLST Time spent: 1-15 minutes, not on file Actual minutes spent: 2
== END 2025-03-01 10:20 | disposition home or self-care (01) ==
LOC: HO.HMCH 08:46
PROVIDERS: PCP Physician Assistant; Visit Provider Physician Assistant
DX: Z00.00 Encounter for general adult medical examination without abnormal findings (principal); Z23 Encounter for immunization; Z13.9 Encounter for screening, unspecified

== ENCOUNTER → 2025-03-01 08:45 | Outpatient (BNVA) | payer MEDICARE, SELFPAY | PROVIDERS: PCP Physician Assistant; Visit Provider Physician Assistant | DX: Z00.00 Encounter for general adult medical examination without abnormal findings (principal); E11.42 Type 2 diabetes mellitus with diabetic polyneuropathy; E78.5 Hyperlipidemia, unspecified; R97.20 Elevated prostate specific antigen [PSA]; D36.9 Benign neoplasm, unspecified site; Z23 Encounter for immunization | CPT/HCPCS: 83036; 90471; 90656; 96127 ==